=== PATIENT | female | born 1990 | race Caucasian/White ===

== ENCOUNTER 2022-09-19 07:28 | Emergency (ER) | payer MEDICAID ==
[2022-09-19 07:36] VITALS: PULSE 108
[2022-09-19 07:49] VITALS: BP 136/84
[2022-09-19] MEDS ORDERED: Amoxicillin 500 MG Cap PO ONE (08:03)
== END 2022-09-19 08:14 | disposition home or self-care (01) ==
LOC: JP.ED 07:28
DX: K02.9 Dental caries, unspecified (principal); Z72.0 Tobacco use
CPT/HCPCS: 99282; A9270